=== PATIENT | female | born 1970 | race American Indian/Alaskan Native ===

== ENCOUNTER 2020-03-29 22:34 | Emergency (ER) | payer SELFPAY ==
[2020-03-29 22:47] VITALS: BP 142/87
--- NOTE | 2020-03-30 05:43 | Emergency Department Report ---
ED General Adult HPI - General Chief complaint: Earache Stated complaint: LT INNER EAR PAIN Time Seen by Provider: 03/30/20 04:28 Source: patient Mode of arrival: Ambulatory Limitations: No Limitations - History of Present Illness Initial comments: 50-year-old -[place] female patient presents with complaints of left ear pain and decreased hearing x4 days. She denies any drainage from the ear, trauma to the ear, headache, fever/chills/sweats, cough, rash, or recent swimming. She rates her pain as a 7/10 in severity and denies trying any OTC medication for her symptoms. - Related Data Previous Rx's Medication Instructions Recorded Last Taken Type Amoxicillin/Potassium Clav 1 each PO BID 10 Days #20 tablet 03/30/20 Unknown Rx [Augmentin 875-125 Tablet] Levocetirizine Dihydrochloride 5 mg PO QHS PRN #10 tablet 03/30/20 Unknown Rx [Xyzal] Allergies Allergy/AdvReac Type Severity Reaction Status Date / Time No Known Allergies Allergy Unverified 03/29/20 22:43 ED Review of Systems ROS: Stated complaint: LT INNER EAR PAIN Other details as noted in HPI Constitutional: denies: chills, diaphoresis, fever, malaise, weakness ENT: ear pain Respiratory: denies: cough, shortness of breath Cardiovascular: denies: chest pain Skin: denies: rash, lesions, change in color Neurological: denies: headache ED Past Medical Hx - Past Medical History Hx GERD: Yes - Surgical History Past Surgical History?: Yes Additional Surgical History: R shoulder, tubal ligation - Social History Smoking Status: Never Smoker - Medications Home Medications: Home Medications Medication Instructions Recorded Confirmed Last Taken Type Amoxicillin/Potassium Clav 1 each PO BID 10 Days #20 tablet 03/30/20 Unknown Rx [Augmentin 875-125 Tablet] Levocetirizine Dihydrochloride 5 mg PO QHS PRN #10 tablet 03/30/20 Unknown Rx [Xyzal] ED Physical Exam - General Limitations: No Limitations General appearance: alert, in no apparent distress, obese - Head Head exam: Present: atraumatic, normocephalic - Eye Eye exam: Present: normal appearance. Absent: scleral icterus - Expanded ENT Exam Expanded TM/Canal exam: Erythema: Left TM, Bulging: Left TM, Effusion: Left TM, Canal Tenderness: Left TM (Tragal tenderness noted with manipulation) Mouth exam: Absent: drooling, trismus, other (No sinus tenderness to palpation) - Neck Neck exam: Present: normal inspection, full ROM. Absent: lymphadenopathy - Respiratory Respiratory exam: Absent: respiratory distress - Cardiovascular Cardiovascular Exam: Present: regular rate - Neurological Exam Neurological exam: Present: alert, oriented X3 - Psychiatric Psychiatric exam: Present: normal affect, normal mood - Skin Skin exam: Present: warm, dry, intact, normal color. Absent: rash, cyanosis, diaphoretic, erythema ED Course Vital Signs 03/29/20 22:44 Temperature 98.5 F Pulse Rate 87 Respiratory 18 Rate Blood Pressure 142/87 O2 Sat by Pulse 96 Oximetry ED Medical Decision Making - Medical Decision Making We will treat for left otitis media with Augmentin. Patient also given levocetirizine for possible effusion. Recommend follow-up with primary care in 3 to 5 days. Strict return precautions were discussed in detail with patient who verbalizes understanding. She is well-appearing stable for discharge home Critical care attestation.: If time is entered above; I have spent that time in minutes in the direct care of this critically ill patient, excluding procedure time. ED Disposition Clinical Impression: Left otitis media Qualifiers: Otitis media type: other nonsuppurative Chronicity: acute Recurrence: non- recurrent Qualified Code(s): H65.192 - Other acute nonsuppurative otitis media, left ear Disposition: TO HOME OR SELFCARE Is pt being admited?: No Condition: Stable Instructions: Otitis Media With Effusion, Pediatric, Otitis Media, Adult Prescriptions: Levocetirizine Dihydrochloride [Xyzal] 5 mg PO QHS PRN #10 tablet PRN Reason: ear fullness Amoxicillin/Potassium Clav [Augmentin 875-125 Tablet] 1 each PO BID 10 Days #20 tablet Referrals: [facility] [Provider Group] - 3-5 Days
[2020-03-30] MEDS ORDERED: IBUPROFEN 800 MG TAB PO ONE (05:46)
== END 2020-03-30 06:00 | disposition home or self-care (01) ==
LOC: ED 22:34
DX: H66.92 Otitis media, unspecified, left ear (principal); K21.9 Gastro-esophageal reflux disease without esophagitis; Z79.899 Other long term (current) drug therapy; Z98.890 Other specified postprocedural states; Z98.51 Tubal ligation status
CPT/HCPCS: 99282